=== PATIENT | male | born 1985 | race Caucasian/White ===

== ENCOUNTER 2016-11-02 06:38 | Emergency (ER) | payer MEDICARE | END 2016-11-02 09:07 | disposition home or self-care (01) | LOC: ER 06:38 | DX: R11.2 Nausea with vomiting, unspecified (principal) ==

== ENCOUNTER 2017-01-16 09:58 | Observation (INO) | payer MEDICARE ==
[~2017-01-16] VITALS: Ht 172.7 cm; Wt 93.0 kg
[2017-01-16 13:57] LABS: HEMATOCRIT 50.9 % (40-51); HEMOGLOBIN 17.4 g/dl (13.7-17.5); MEAN CORPUSCULAR HEMOGLOBIN 28.8 pg (27.0-33.0); MEAN CORPUSCULAR HGB CONC 34.2 g/dl (32.0-36.0); MEAN CORPUSCULAR VOLUME 84.3 fl (79-92); RED BLOOD COUNT 6.04 x10_6/ul (4.6-6.1); WHITE BLOOD COUNT 10.8 x10_3/ml (4.2-9.1)
[2017-01-16 13:58] LABS: GRAN # 8.3 10_X3_UL (1.8-5.4); GRAN % 76.8 % (34.0-67.9); LYMPH # 2.1 10_X3_UL (1.3-3.6); LYMPH % 19.7 % (21.8-53.1); MIXED # 0.4 10_X3_UL (0-12); MIXED % 3.5 % (1.7-9.3); PLATELET COUNT 335 x10_3/UL (163-337); RED CELL DISTRIBUTION WIDTH 13.3 % (11.6-14.4)
[2017-01-16 14:02] LABS: ALBUMIN 4.4 gm/dL (3.4-5.0); ALKALINE PHOSPHATASE 63 U/L (50-136); ALT/SGPT 26 U/L (7.53-40.17); AST/SGOT 20 U/L (6.66-35.34); BILIRUBIN,TOTAL 1.98 mg/dL (0.0-1.0); BLOOD UREA NITROGEN 17 mg/dL (7-18); CALCIUM 9.2 mg/dL (8.7-10.7); CARBON DIOXIDE 22 mmol/L (21-32); CREATININE 1.2 mg/dL (0.6-1.3); GLUCOSE,RANDOM 109 mg/dL (70-99); POTASSIUM 3.8 mmol/L (3.5-5.1); SODIUM 141 mmol/L (136-145); TOTAL PROTEIN 7.3 gm/dL (6.4-8.2)
== END 2017-01-17 10:19 | disposition home or self-care (01) ==
LOC: ER 09:58 → MS 13:28
PROVIDERS: General Practice; ADMIT Family Medicine
DX: F11.23 Opioid dependence with withdrawal (principal); R11.2 Nausea with vomiting, unspecified; G89.29 Other chronic pain; R45.0 Nervousness; R25.1 Tremor, unspecified; Z83.3 Family history of diabetes mellitus; Z80.9 Family history of malignant neoplasm, unspecified; Z82.49 Family history of ischemic heart disease and other diseases of the circulatory system; Z83.6 Family history of other diseases of the respiratory system; Z88.0 Allergy status to penicillin; Z88.1 Allergy status to other antibiotic agents
CPT/HCPCS: 36415; 80053; 80307; 85025; 96361; 96374; 96375; 96376; 99070; 99284-25; G0378; J3360